=== PATIENT | male | born 1955 | race Caucasian/White ===

== ENCOUNTER 2017-04-13 23:40 | Inpatient (IN) ==
[2017-04-14] MEDS ORDERED: ONDANSETRON 4 MG/2 ML VIAL ONE (00:09)
[2017-04-14] MEDS ORDERED: MAGNESIUM SULF RIDER 50 ML IV ONE (00:10)
[2017-04-14] MEDS ORDERED: HYDROmorphone 2 MG/1 ML VIAL ONE (00:10)
[2017-04-14] MEDS ORDERED: ONDANSETRON 4 MG/2 ML VIAL IV STA (00:35)
[2017-04-14] MEDS ORDERED: MAGNESIUM SULF RIDER 2 GM in PREMIX 1 EACH IV STA (00:35)
[2017-04-14] MEDS ORDERED: HYDROmorphone 2 MG/1 ML VIAL IV STA (00:35)
[2017-04-14 00:58] LABS: Basophils % 0.3 % (0.0-0.8); Eosinophils % 0.4 % (0.00-10.9); Hematocrit 40.2 VOL% (42.0-52.0); Hemoglobin 13.1 GM/DL (14.0-18.0); Immature Granulocytes % 0.3 %; Immature Granulocytes Absolute 0.02 #; Lymphocytes # 0.6 10*3/uL (1.4-4.0); Lymphocytes % 7.7 % (21.2-54.2); Mean Corpuscular HGB Conc 32.6 GM/DL (32-36); Mean Corpuscular Hemoglobin 27 PG (27-34); Mean Corpuscular Volume 83.2 FL (87-102); Mean Platelet Volume 10.7 FL (9.6-12.0); Monocytes # 0.8 10*3/uL (0.11-0.8); Monocytes % 10.9 % (1.7-12.7); Neutrophils # 5.8 10*3/uL (1.4-7.4); Neutrophils % 80.4 % (38.7-73.9); Platelet Count 206 T/CUMM (130-400); Red Blood Count 4.83 MC/CUMM (3.8-5.5); Red Cell Distribution Width 15.8 % (9.3-17.3); White Blood Count 7.2 T/CUMM (4-12)
--- NOTE | 2017-04-14 00:59 | Emergency Department Note ---
Valerie Gross Gwan, am scribing for, and in the presence of, Hany Saenz MD 00 :43. Dany Gross Charles R, MD, personally performed the services described in this documentation, ascribed by Jv Padilla in my presence, and it is both accurate and complete . Arrival - Arrival Chief Complaint: Abdominal / Flank Pain ED Nursing Triage Note: Pt arrives via ems from [facility] for further treatment of possible SBO. Pt was seen for abd pain and nausea earlier tonight and ct results show SBO. Pt has ng tube to right nare upon arrival and states that he feels much better since placement and some suction was done. Pt has no further complaints at this time. Mode of Arrival: Stretcher Limitations: No Limitations Source: Patient, Old Records Reviewed, RN Notes Reviewed Time Seen by Provider: 04/14/17 00:08 - History of Present Illness HPI Narrative: Patient is a 61 y/o male who presents to the ED via EMS transferred from [facility] for further evaluation of small bowel obstruction. Patient stated that he began to have abd pain and nausea yesterday night. He continued to note that he administered some Dulcolax with no relief. Soon after he began to have chest pain. This prompted his visit to [facility] for further evaluation. After arriving to [facility], pt was given a CT that resulted in evidence of a small bowel obstruction. he was then given an NG tube to right nare for relief and prompted to report to [facility] ED for further treatment. While in ED, pt stated that his sxs have subsided and he now has some relief. Patient does not appear to be in any acute distress. No other problems/ complaints reported in ED. Onset (ago): hour(s) Consistency: constant Severity: moderate Allergies/Adverse Reactions: Allergies Allergy/AdvReac Type Severity Reaction Status Date / Time Penicillins Allergy Unknown/Unable Verified 06/05/15 10:50 to obtain morphine AdvReac Hypotension Verified 06/05/15 10:50 Home Medications: Home Medications Medication Instructions Recorded Confirmed Type Ascorbic Acid Tab [Vitamin C Tab] 1,000 mg PO DAILY 06/05/15 04/14/17 History Aspirin [Ecotrin] 325 mg PO DAILY 06/05/15 04/14/17 History Atenolol 50 mg PO BID 06/05/15 04/14/17 History Escitalopram Oxalate [Lexapro] 5 mg PO DAILY 06/05/15 04/14/17 History Levothyroxine Tab [Synthroid Tab] 100 mcg PO DAILY@0700 06/05/15 04/14/17 History Losartan [Cozaar] 50 mg PO DAILY 06/05/15 04/14/17 History Simvastatin 40 mg PO DAILY 06/05/15 04/14/17 History Vitamin E Cap 400 unit PO DAILY 06/05/15 04/14/17 History metFORMIN [Glucophage] 500 mg PO TID 06/05/15 04/14/17 History rOPINIRole [Requip] 1 mg PO BID 06/05/15 04/14/17 History Felodipine [Felodipine ER] 5 mg PO DAILY 04/14/17 04/14/17 History Review of System - Review of System 12 point system: reviewed and no additional remarkable complaints except as stated - Review of System Constitutional: Absent: chills, fever Eyes: Absent: discharge, pain, redness Cardiovascular: Present: as per HPI, chest pain Gastrointestinal: Present: as per HPI, abdominal pain Medical,Surgical,& Family Hx - Medical History Cardio: History of: Hypertension, Cardiovascular Problems (bypass 1997) Endocrine: History of: Diabetes Mellitus (NIDDM), Dyslipidemia, Thyroid Disorder Respiratory: History of: COPD, Obstructive Sleep Apnea Gastrointestinal: History of: GERD - Surgical History Cardiac Surgeries: Sugical HX of: Femoral-Popliteal Bypass Graft - Social History Smoking Status: Never smoker Frequency of Alcohol Use: None Type of Drug Use: None Exam Vital Signs: Vital Signs Temperature 98.0 F 04/13/17 23:40 Pulse Rate 68 04/14/17 02:16 Respiratory Rate 18 04/14/17 02:16 Blood Pressure 147/80 04/14/17 02:16 O2 Sat by Pulse Oximetry 93 L 04/14/17 02:16 - General General appearance: alert, in no apparent distress - Head Head exam: Present: atraumatic, normocephalic - Eye Eye exam: Present: normal appearance, PERRL, EOMI - ENT ENT exam: Present: normal oropharynx, mucous membranes moist, TM's normal bilaterally, normal external ear exam - Expanded ENT Exam Nose exam: other (Patient has NG tube to right nare.) - Neck Neck exam: Present: full ROM, trachea midline. Absent: tenderness - Chest Chest inspection: Present: symmetric chest wall rise. Absent: tenderness - Respiratory Respiratory exam: Present: normal lung sounds bilaterally. Absent: respiratory distress - Cardiovascular Cardiovascular exam: Present: regular rate, normal rhythm, normal heart sounds. Absent: murmur - Abdominal Exam Abdominal exam: Present: distention (Protuberant belly), tenderness (diffuse tenderness), hyperactive bowel sounds (high pitched bowel sounds) - Extremities Exam Extremities exam: Present: full ROM, other (+2 edema noted to bilateral lower extremities) - Back Exam Back exam: Present: full ROM. Absent: tenderness - Neurological Exam Neurological exam: Present: alert, oriented X3, CN II-XII intact. Absent: motor sensory deficit - Psychiatric Psychiatric exam: Present: normal affect, normal mood - Skin Skin exam: Present: other (Patient has NG tube to right nare, protuberant belly and +2 edema note to bilateral LE. ) Course - Consultations Consultation #1: Dr. Brito will admit patient Time: 00:58 Results - Labs CBC & BMP: 04/14/17 00:28 04/14/17 00:28 Lab Results: I have reviewed the patients labs Labs: Laboratory Tests 04/14/17 04/14/17 00:28 00:28 WBC 7.2 RBC 4.83 Hgb 13.1 L Hct 40.2 L MCV 83.2 L Plt Count 206 Neut % (Auto) 80.4 H Lymph % (Auto) 7.7 L Lymph # (Auto) 0.6 L Sodium 141 Potassium 3.8 Chloride 104 Carbon Dioxide 29 BUN 20 H Creatinine 1.30 Glucose 116 H CK-MB (CK-2) 7.7 H Disposition Clinical Impression: Small bowel obstruction, Abdominal pain Case discussed with: patient Disposition: Still a Patient Condition: Stable Time of Disposition: 00:59
[2017-04-14 01:12] LABS: Alanine Aminotransferase 26 U/L (16-61); Alkaline Phosphatase 68 U/L (45-117); Aspartate Amino Transferase 19 U/L (0-37); Blood Urea Nitrogen 20 MG/DL (7-18); CKMB % 4.4 %; Calcium 8.7 MG/DL (8.5-10.1); Glucose 116 MG/DL (74-106); Magnesium 1.8 MG/DL (1.8-2.4); Osmolality,Calculated 284.3 MOS/KG (273-304); Potassium 3.8 MMOL/L (3.5-5.1); Sodium 141 MMOL/L (136-145); Total Protein 6.8 G/DL (6.4-8.3); Troponin I Only < 0.015 NG/ML (0.00-0.045)
[2017-04-14] MEDS ORDERED: DEXTROSE 50% 25 GM/50 ML SYRINGE IV PRN ×2 (02:12→10:30)
[2017-04-14] MEDS ORDERED: GLUCAGON 1 MG VIAL IM PRN ×2 (02:12→10:30)
[2017-04-14] MEDS ORDERED: ACETAMINOPHEN 325 MG TABLET PO PRN (02:12)
[2017-04-14] MEDS ORDERED: ONDANSETRON 4 MG/2 ML VIAL IV PRN (02:12)
[2017-04-14] MEDS: SODIUM CHLORIDE 0.9% 1,000 ML IV SCH ×2 (03:13→11:23)
[2017-04-14 05:19] LABS: Basophils % 0.1 % (0.0-0.8); Eosinophils % 0.6 % (0.00-10.9); Hematocrit 39.2 VOL% (42.0-52.0); Hemoglobin 12.5 GM/DL (14.0-18.0); Immature Granulocytes % 0.3 %; Immature Granulocytes Absolute 0.02 #; Lymphocytes # 0.7 10*3/uL (1.4-4.0); Lymphocytes % 10.1 % (21.2-54.2); Mean Corpuscular HGB Conc 31.9 GM/DL (32-36); Mean Corpuscular Hemoglobin 27 PG (27-34); Mean Corpuscular Volume 84.3 FL (87-102); Monocytes # 0.9 10*3/uL (0.11-0.8); Monocytes % 12.8 % (1.7-12.7); Neutrophils # 5.1 10*3/uL (1.4-7.4); Neutrophils % 76.1 % (38.7-73.9); Platelet Count 211 T/CUMM (130-400); Red Blood Count 4.65 MC/CUMM (3.8-5.5); Red Cell Distribution Width 15.9 % (9.3-17.3); White Blood Count 6.7 T/CUMM (4-12)
[2017-04-14 05:52] LABS: Albumin 3.7 G/DL (3.4-5.0); Bilirubin,Total 1.2 MG/DL (0.2-1.0); Calcium 8.6 MG/DL (8.5-10.1); Magnesium 2.4 MG/DL (1.8-2.4); Osmolality,Calculated 284.3 MOS/KG (273-304); Potassium 4.7 MMOL/L (3.5-5.1); Total Protein 6.6 G/DL (6.4-8.3)
[2017-04-14] MEDS: LEVOTHYROXINE 100 MCG TABLET PO SCH (06:28)
[2017-04-14] MEDS: INSULIN REGULAR 100 UNIT/ML SUBCUT SCH ×4 (07:30→20:48)
[2017-04-14] MEDS: ALBUTEROL/IPRATROPIUM 3 ML NEB RESP TX SCH ×3 (07:47→19:09)
--- NOTE | 2017-04-14 07:49 | XRay Report ---
Exam: XR chest 1V portable Date: 04/14/2017 1:38 AM Indication: Abdominal pain Comparison: 04/13/2017 Technical: AP Findings: Sternotomy wires are present with previous cardiomegaly. Hepatic nasogastric tube traverses esophagus faintly demonstrated distally. Mild elevation left hemidiaphragm. A few reticular nodular densities are present. No pneumothorax. Mediastinum is intact Impression: 1. Cardiomegaly with previous sternotomy without overt decompensation 2. Underlying chronic lung disease and granuloma changes 3. Nasogastric tube in place PROCEDURE INTERPRETED AT [facility] DEPARTMENT OF RADIOLOGY Final Report Signed by: Dr. Rafi Hernandez
[2017-04-14] MEDS ORDERED: metFORMIN 500 MG TABLET PO SCH (08:00)
[2017-04-14] MEDS ORDERED: PANTOPRAZOLE 40 MG TABLET PO SCH (09:00)
[2017-04-14] MEDS: rOPINIRole 1 MG TABLET PO SCH ×2 (09:00→20:49)
[2017-04-14] MEDS: ASPIRIN EC 325 MG TABLET PO SCH (09:00)
[2017-04-14] MEDS: FELODIPINE 5 MG TABLET PO SCH (09:00)
[2017-04-14] MEDS: ATENOLOL 50 MG TABLET PO SCH ×2 (09:00→20:49)
[2017-04-14] MEDS: LOSARTAN 50 MG TABLET PO SCH (09:00)
[2017-04-14] MEDS: SIMVASTATIN 40 MG TABLET PO SCH (09:00)
[2017-04-14] MEDS: ASCORBIC ACID 500 MG TABLET PO SCH (09:00)
[2017-04-14] MEDS: VITAMIN E 1000 UNIT CAPSULE PO SCH (09:00)
[2017-04-14] MEDS: ESCITALOPRAM 10 MG TABLET PO SCH (09:00)
[2017-04-14] MEDS: HYDROmorphone 2 MG/1 ML VIAL IV PRN (09:14)
[2017-04-14] MEDS: ENOXAPARIN 40 MG/0.4 ML SYRINGE SUBCUT SCH (09:18)
--- NOTE | 2017-04-14 10:29 | Hospitalist Consult Note ---
Assessment and Plan - Time spent with patient Time spent with patient: Greater than 30 minutes (1) Small bowel obstruction Status: Acute Assessment and plan: Abdominal CT from [facility] shows dilated proximal small bowel loops with mild edema in the adjacent mesentery which is concerning for partial/ developing small bowel obstruction. Patient is admitted to general surgery service and is being followed by Dr. Brito. Will defer management to surgery. Current Visit: Yes (2) Abdominal pain Status: Acute Assessment and plan: Secondary to above. Current Visit: Yes (3) Hypertension Status: Acute Assessment and plan: Adequately controlled on home medications. Continue home medications and monitor BP. Current Visit: Yes (4) Diabetes mellitus Status: Acute Assessment and plan: Serum glucose 117. Hemoglobin A1c 7.5%. Patient takes metformin 500 mg p.o. daily at home. We will continue metformin and sliding scale insulin with Accu- Cheks ACHS per protocol. Current Visit: Yes (5) CHAY (obstructive sleep apnea) Status: Acute Assessment and plan: Patient voices compliance with home CPAP device. He should continue CPAP use while hospitalized. Current Visit: Yes (6) Restless leg syndrome, controlled Status: Acute Assessment and plan: Adequately managed on Requip. Continue home medications Current Visit: Yes History of Present Illness - Data of Consult Patient: new to practice Consult date: 04/14/17 Requesting Physician: Ortega Brito Primary care physician: Maribell Reyes - Consult Narrative Reason for consult: Medical management History of present illness: Mr. Dolan is a 61 year old white male with a past medical history significant for hypertension, MA with double bypass (1997), diabetes mellitus, CHAY, COPD and restless leg syndrome who presented to the hospital on this morning as a transfer from [facility] for further evaluation of a suspected small bowel obstruction. Patient was decompressed with an NG tube at [facility] prior to transfer to [facility]. On exam, the patient reports feeling much better since having the NG tube placed. Tube remains in place and draining. He denies headache, blurry vision, chest pain, shortness of breath, nausea/vomiting/ diarrhea, hematemesis, BRBPR. He confirms RUQ tenderness and trace edema in BLE. Patient is admitted to Dr. Brito's service. We have been consulted to assist with medical management. Vital signs are stable. Home medications have been restarted and his blood pressure is adequately controlled currently. He takes Metformin 500 mg PO daily for DM management. GFR is >60 and creatinine is 1.30. Hemoglobin A1c is 7.5. He has been appropriately started on SS insulin for inpatient management with [facility]. This case has been discussed with Ms. Calvert, surgery PA, and Dr. Eastman, consulting physician. We are happy to follow along as needed. Thank you for the consult. CC: Ortega Brito MD - Home Medications and Allergies Home Medications: Home Medications Medication Instructions Recorded Confirmed Type Ascorbic Acid Tab [Vitamin C Tab] 1,000 mg PO DAILY 06/05/15 04/14/17 History Aspirin [Ecotrin] 325 mg PO DAILY 06/05/15 04/14/17 History Atenolol 50 mg PO BID 06/05/15 04/14/17 History Escitalopram Oxalate [Lexapro] 5 mg PO DAILY 06/05/15 04/14/17 History Levothyroxine Tab [Synthroid Tab] 100 mcg PO DAILY@0700 06/05/15 04/14/17 History Losartan [Cozaar] 50 mg PO DAILY 06/05/15 04/14/17 History Simvastatin 40 mg PO DAILY 06/05/15 04/14/17 History Vitamin E Cap 400 unit PO DAILY 06/05/15 04/14/17 History metFORMIN [Glucophage] 500 mg PO TID 06/05/15 04/14/17 History rOPINIRole [Requip] 1 mg PO BID 06/05/15 04/14/17 History Felodipine [Felodipine ER] 5 mg PO DAILY 04/14/17 04/14/17 History Allergies/Adverse Reactions: Allergies Allergy/AdvReac Type Severity Reaction Status Date / Time Penicillins Allergy Unknown/Unable Verified 06/05/15 10:50 to obtain morphine AdvReac Hypotension Verified 06/05/15 10:50 Medical,Surgical,& Family Hx - Medical History Cardio: History of: Hypertension, Cardiovascular Problems (bypass 1997) Endocrine: History of: Diabetes Mellitus (NIDDM), Dyslipidemia, Thyroid Disorder Respiratory: History of: COPD, Obstructive Sleep Apnea Genitourinary: History of: Kidney Stones ("two rounds") Gastrointestinal: History of: GERD Musculoskeletal: Comment Only: Musculoskeletal Problems (restless leg syndrome) - Surgical History Cardiac Surgeries: Sugical HX of: Femoral-Popliteal Bypass Graft Orthopedic Surgeries: Comment Only: Orthopedic Surgery ("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") - Family History Family History: Reports;: Family Cancer (mother-lung; father-prostate), Family Heart Disease (father), Family Hypertension (father and mother), Family Stroke ( mother) Denies;: Family Diabetes - Social History Smoking Status: Never smoker Frequency of Alcohol Use: None Type of Drug Use: None Marital Status: Lives With:: Spouse Functional capacity: independent ambulation 12 point system: reviewed and no additional remarkable complaints except as stated Exam - Constitutional Vitals: Period Temp Pulse Resp BP Sys/Kaye Pulse Ox Last 24 Hr 97.0 F-98.0 F 64-77 12-21 140-160/69-80 92-95 Exam: General appearance: obese, no acute distress - Head Head exam: Present: normocephalic, atraumatic - Eye Eye exam: Present: EOMI. Absent: conjunctival injection, nystagmus Pupils: Present: TONIA, normal accommodation - ENT ENT exam: Present: normal exam, normal external ear exam - Neck Neck exam: Present: normal inspection. Absent: lymphadenopathy, tenderness, thyromegaly - Respiratory Respiratory exam: Present: clear to auscultation bilaterally. Absent: rales, rhonchi, wheezes - Cardiovascular Cardiovascular exam: Present: regular rate and rhythm. Absent: carotid bruit, gallop, rubs - GI/Abdominal GI/Abdominal exam: Present: nontender, distended, hypoactive bowel sounds. Absent: ascites, mass - Extremities Exam Extremities exam: Present: normal inspection, normal capillary refill. Absent: edema - Back Exam Back exam: Absent: CVA tenderness (L), CVA tenderness (R) - Neurological Exam Neurological exam: Present: alert, oriented X3, CN II-XII intact, reflexes normal - Psychiatric Psychiatric exam: Present: normal affect, normal mood - Skin Skin exam: Present: normal color, warm, dry Results - Labs CBC & BMP: 04/14/17 04:33 04/14/17 04:33 Lab Results: I have reviewed the past 24 hour labs - Diagnostic Findings Procedure: Abdominal x-ray: image reviewed by me, report reviewed by me, Chest x -ray: image reviewed by me, report reviewed by me
--- NOTE | 2017-04-14 10:46 | General Surg History&Physical ---
<Rocio Calvert - Last Filed: 04/14/17 12:07> Assessment and Plan (1) Partial small bowel obstruction Status: Acute Assessment and plan: Patient is clinically improved with NG tube. Minimal output. We will continue NG tube and bowel rest for now with IV hydration. Dr. Brito to follow. Current Visit: Yes History of Present Illness Chief complaint: abdominal pain History of present illness: Mr. Dolan is a 61 year old male with past medical history of non-insulin- dependent diabetes, CAD status post CABG in 1997, COPD, and CHAY compliant with CPAP who presented initially to an outside facility yesterday with abdominal pain, distention and severe nausea without vomiting as well as chest pain. He had findings on CT concerning for partial small bowel obstruction and was transferred to [facility] for further evaluation and treatment. An NG tube was placed while at the outside facility after which he had significant relief. He has had minimal output here and is relatively comfortable at this time with NG tube still present. He denies any nausea. Reports he had a bowel movement 2 days ago of normal caliber without hematochezia or melena. He is not passing flatus at this time. He denies a generalized fatigue, anorexia, or weight loss. He has no history of abdominal procedures. Home Medications Medication Instructions Recorded Confirmed Type Ascorbic Acid Tab [Vitamin C Tab] 1,000 mg PO DAILY 06/05/15 04/14/17 History Aspirin [Ecotrin] 325 mg PO DAILY 06/05/15 04/14/17 History Atenolol 50 mg PO BID 06/05/15 04/14/17 History Escitalopram Oxalate [Lexapro] 5 mg PO DAILY 06/05/15 04/14/17 History Levothyroxine Tab [Synthroid Tab] 100 mcg PO DAILY@0700 06/05/15 04/14/17 History Losartan [Cozaar] 50 mg PO DAILY 06/05/15 04/14/17 History Simvastatin 40 mg PO DAILY 06/05/15 04/14/17 History Vitamin E Cap 400 unit PO DAILY 06/05/15 04/14/17 History metFORMIN [Glucophage] 500 mg PO TID 06/05/15 04/14/17 History rOPINIRole [Requip] 1 mg PO BID 06/05/15 04/14/17 History Felodipine [Felodipine ER] 5 mg PO DAILY 04/14/17 04/14/17 History Allergies Allergy/AdvReac Type Severity Reaction Status Date / Time Penicillins Allergy Unknown/Unable Verified 06/05/15 10:50 to obtain morphine AdvReac Hypotension Verified 06/05/15 10:50 Medical,Surgical,& Family Hx - Medical History Cardio: History of: Hypertension, Cardiovascular Problems (bypass 1997) Endocrine: History of: Diabetes Mellitus (NIDDM), Dyslipidemia, Thyroid Disorder Respiratory: History of: COPD, Obstructive Sleep Apnea (CPAP compliant) Genitourinary: History of: Kidney Stones ("two rounds") Gastrointestinal: History of: GERD Musculoskeletal: Comment Only: Musculoskeletal Problems (restless leg syndrome) - Surgical History Cardiac Surgeries: Sugical HX of: Femoral-Popliteal Bypass Graft, Cardiac Surgery (CABG) - Family History Family History: Reports;: Family Cancer (mother-lung; father-prostate), Family Heart Disease (father), Family Hypertension (father and mother), Family Stroke ( mother) Denies;: Family Diabetes - Social History Smoking Status: Never smoker Frequency of Alcohol Use: None Type of Drug Use: None Functional capacity: independent ambulation (Employed full-time) Exam - Constitutional Vitals: Period Temp Pulse Resp BP Sys/Kaye Pulse Ox Last 24 Hr 97.0 F-98.0 F 64-92 12-21 140-160/69-80 92-892 General appearance: no acute distress, morbidly obese - Eye Eye exam: Absent: scleral icterus - Respiratory Respiratory exam: Present: clear to auscultation bilaterally - Cardiovascular Cardiovascular exam: Present: RRR - GI/Abdominal GI/Abdominal exam: Present: hypoactive bowel sounds, tenderness (Minimal epigastric), soft, other (Protuberant abdomen; tympanic to percussion) - Extremities Exam Extremities exam: Absent: calf tenderness, edema - Neurological Exam Neurological exam: Present: alert, oriented X3 Speech: Present: normal - Skin Skin exam: Present: normal color, warm - Constitutional Constitutional: Absent: anorexia, chills, fatigue, fever(s) - Cardiovascular Cardiovascular: Present: as per HPI. Absent: dyspnea on exertion, orthopnea - Respiratory Respiratory: Present: cough (Chronic and change), other (No recent COPD exacerbation). Absent: wheezing - Gastrointestinal Gastrointestinal: Present: as per HPI - Genitourinary Genitourinary: Absent: dysuria, flank pain Hematologic/Lymphatic: Absent: easy bleeding, easy bruising Results - Labs CBC & BMP: 04/14/17 04:33 04/14/17 04:33 Lab Results: I have reviewed the past 24 hour labs Labs: Transfer chart from outside facility reviewed in its entirety including imaging - Diagnostic Findings Procedure: Chest x-ray: image reviewed by me, report reviewed by me, KUB x-ray: image reviewed by me, report reviewed by me <Camila Eastman - Last Filed: 04/14/17 12:22> History of Present Illness History of present illness: Mr. Dolan is a 61 year old male with multiple medical issue who is admitted for partial SBO. patient was seen examined and discussed with the [employer] RES[employer] CONSULTANT. Plan BC/UA TSH HbA1c change protonix to IV Lipids SSC Hold metformin for now continue other management Exam - Constitutional Vitals: Period Temp Pulse Resp BP Sys/Kaye Pulse Ox Last 24 Hr 97.0 F-98.0 F 64-92 12-21 140-160/69-80 92-892 Results - Labs CBC & BMP: 04/14/17 04:33 04/14/17 04:33
[2017-04-14 10:59] LABS: Free T4 (Free Thyroxine) 1.1 NG/DL (0.76-1.46); Risk Ratio 3.14; Thyroid Stimulating Hormone 2.04 uIU/ml (0.358-3.74); VLDL CHOLESTEROL 27.8 MG/DL
--- NOTE | 2017-04-14 11:25 | XRay Report ---
History: Abdominal pain Date: 04/14/2017 Study: Flat and erect abdomen Comparison exam: Outside CT scan 04/13/2017 The nasogastric tube is positioned with its tip overlying the proximal stomach level. There is mildly disproportionate small bowel distention compatible with partial small bowel obstruction, the same or only minimally improved compared to the building custodian CT film from yesterday. Scattered stool and air are noted in the normal caliber colon. Phleboliths overlie the pelvis. There is moderate lumbar spondylosis. Impression: Partial small bowel obstruction, the same or only minimally improved compared to the previous day's CT scan. Nasogastric tube positioned at the proximal stomach level PROCEDURE INTERPRETED AT [facility] DEPARTMENT OF RADIOLOGY Final Report Signed by: Dr. Tennille Burkett
--- NOTE | 2017-04-14 11:28 | XRay Report ---
History: Shortness of breath Date: 04/14/2017 at 7:32 AM Study: Chest x-ray PA and lateral Comparison exam: 04/14/2017 at 1:59 AM The nasogastric tube is positioned with its tip at the proximal stomach level. There is stable mild cardiomegaly. The mediastinal contours are unchanged in this patient status post prior median sternotomy. The pulmonary vasculature is not engorged. There is some minor subsegmental atelectasis in the lung bases. There is moderately improved aeration in the left base. There is no gross pleural effusion. Osseous structures are unchanged. Impression: Improving left basilar atelectasis compared to the previous study. No interval worsening PROCEDURE INTERPRETED AT [facility] DEPARTMENT OF RADIOLOGY Final Report Signed by: Dr. Tennille Burkett
[2017-04-14] MEDS: PANTOPRAZOLE 40 MG VIAL IV SCH (11:29)
[2017-04-14 14:58] LABS: Apearance,Urine Slightly Hazy (Clear); Bilirubin,Urine Negative (Negative); Blood, Urine Negative (Negative); Glucose,Urine (UA) Negative (Negative); Hyaline Casts,Urine 3 /LPF (0-3); Ketones,Urine Negative (Negative); Mucus,Urine Occasional /LPF (Occasional); Nitrite,Urine Negative (Negative); Protein,Urine >=500 MG/DL; RBC,Urine 4 /HPF (0-4); Squamous Epithelial Cell,Urine Occasional /HPF (0-10); Urine Color Yellow (Yellow); Urine Specific Gravity 1.026 (1.001-1.035); Urine Urobilinogen < 2.0 EU/DL (0.2-1.0); WBC,Urine 2 /HPF (0-6)
[2017-04-14] MEDS ORDERED: PHENOL 1.4% THROAT SPRAY 177 ML BOTTLE PO PRN (19:13)
[2017-04-15] MEDS: SODIUM CHLORIDE 0.9% 1,000 ML IV SCH ×2 (00:02→13:13)
[2017-04-15] MEDS: ALBUTEROL/IPRATROPIUM 3 ML NEB RESP TX SCH ×4 (01:25→19:52)
[2017-04-15] MEDS: HYDROmorphone 2 MG/1 ML VIAL IV PRN ×3 (02:34→21:17)
[2017-04-15 05:21] LABS: Basophils % 0.5 % (0.0-0.8); Eosinophils # 0.1 10*3/uL (0.0-0.87); Eosinophils % 2.2 % (0.00-10.9); Hemoglobin 12.4 GM/DL (14.0-18.0); Immature Granulocytes % 0.2 %; Immature Granulocytes Absolute 0.01 #; Lymphocytes # 0.6 10*3/uL (1.4-4.0); Lymphocytes % 14.6 % (21.2-54.2); Mean Corpuscular Hemoglobin 27 PG (27-34); Mean Corpuscular Volume 86.2 FL (87-102); Mean Platelet Volume 11.2 FL (9.6-12.0); Monocytes # 0.8 10*3/uL (0.11-0.8); Monocytes % 19.6 % (1.7-12.7); Neutrophils # 2.5 10*3/uL (1.4-7.4); Neutrophils % 62.9 % (38.7-73.9); Platelet Count 181 T/CUMM (130-400); Red Blood Count 4.64 MC/CUMM (3.8-5.5); Red Cell Distribution Width 15.9 % (9.3-17.3)
[2017-04-15 05:50] LABS: Calcium 8.1 MG/DL (8.5-10.1); Osmolality,Calculated 284.1 MOS/KG (273-304); Potassium 4.2 MMOL/L (3.5-5.1)
[2017-04-15 05:56] LABS: Band Neutrophils 5 % (0-10); Eosinophils 2 % (0-10); Lymphocytes 19 % (20-55); Segmented Neutrophils 64 % (50-85); Total Cells Counted 100
[2017-04-15 05:57] LABS: Hypochromasia 1+; Ovalocytes 1+; Platelet Estimate Normal
[2017-04-15] MEDS: INSULIN REGULAR 100 UNIT/ML SUBCUT SCH ×4 (06:38→20:55)
[2017-04-15] MEDS: LEVOTHYROXINE 100 MCG TABLET PO SCH (06:42)
[2017-04-15] MEDS: ESCITALOPRAM 10 MG TABLET PO SCH (09:00)
[2017-04-15] MEDS: ATENOLOL 50 MG TABLET PO SCH ×2 (09:00→20:55)
[2017-04-15] MEDS: ASPIRIN EC 325 MG TABLET PO SCH (09:00)
[2017-04-15] MEDS: LOSARTAN 50 MG TABLET PO SCH (09:00)
[2017-04-15] MEDS: ASCORBIC ACID 500 MG TABLET PO SCH (09:00)
[2017-04-15] MEDS: VITAMIN E 1000 UNIT CAPSULE PO SCH (09:00)
[2017-04-15] MEDS: SIMVASTATIN 40 MG TABLET PO SCH (09:00)
[2017-04-15] MEDS: rOPINIRole 1 MG TABLET PO SCH ×2 (09:00→20:55)
[2017-04-15] MEDS: FELODIPINE 5 MG TABLET PO SCH (09:00)
[2017-04-15] MEDS: PANTOPRAZOLE 40 MG VIAL IV SCH (09:03)
[2017-04-15] MEDS: ENOXAPARIN 40 MG/0.4 ML SYRINGE SUBCUT SCH (09:06)
--- NOTE | 2017-04-15 11:06 | General Surgery Progress Note ---
Assessment and Plan (1) Partial small bowel obstruction Status: Acute Assessment and plan: Patient is clinically improved with NG tube with minimal output. Still no bowel sounds. We will continue NG tube and monitor. Will reexamine later today for hopeful NG tube removal. Continue IV hydration. Dr. Brito to follow. Current Visit: Yes Subjective Patient reports: Present: no new complaints, feels better (passed flatus last night; none today. No BM. Decreased abdominal distension. No N/V. Increased activity.) Exam - Constitutional Vitals: Period Temp Pulse Resp BP Sys/Kaye Pulse Ox Last 24 Hr 97.3 F-98.8 F 66-86 15-20 126-188/68-91 83-98 General appearance: morbidly obese - Respiratory Respiratory exam: Present: clear to auscultation bilaterally - Cardiovascular Cardiovascular exam: Present: RRR - GI/Abdominal GI/Abdominal exam: Present: soft, other (protuberant; less distended; no bowel sounds noted). Absent: tenderness - Extremities Exam Extremities exam: Absent: calf tenderness, edema - Neurological Exam Neurological exam: Present: alert, oriented X3 Speech: Present: normal - Skin Skin exam: Present: normal color Results - Labs CBC & BMP: 04/15/17 04:07 04/15/17 04:07 Lab Results: I have reviewed the past 24 hour labs (NG tube output approximately 150 cc) - Diagnostic Findings Procedure: Abdominal Flat/Erect: image reviewed by me (Reading pending. )
[2017-04-15] MEDS ORDERED: hydrALAZINE 20 MG/1 ML VIAL IV ONE (11:43)
--- NOTE | 2017-04-15 13:26 | XRay Report ---
History: Partial small bowel obstruction Date: 04/15/2017 Study: Flat and erect abdomen Comparison exam: 04/14/2017 The nasogastric tube tip has been retracted to the level of the GE junction. It is recommended that the nasogastric tube be advanced between 5 and 8 cm at the minimum. There is no evidence of pneumoperitoneum. There is mild disproportionate small bowel dilatation, though this has improved compared to the previous study. Some scattered stool and air are noted in the normal caliber colon. No gross mass lesion seen. Osseous structures are unchanged. Impression: Persistent but improving partial small bowel obstruction The nasogastric tube has been retracted to the GE junction level. It is recommended that the tube be advanced between 5 and 8 cm PROCEDURE INTERPRETED AT [facility] DEPARTMENT OF RADIOLOGY Final Report Signed by: Dr. Tennille Burkett
[2017-04-16] MEDS: ALBUTEROL/IPRATROPIUM 3 ML NEB RESP TX SCH ×4 (01:14→19:15)
[2017-04-16] MEDS: SODIUM CHLORIDE 0.9% 1,000 ML IV SCH ×2 (02:28→12:13)
[2017-04-16] MEDS ORDERED: ENALAPRIL 2.5 MG/2 ML VIAL IV PRN (05:58)
[2017-04-16] MEDS ORDERED: hydrALAZINE 20 MG/1 ML VIAL IV PRN (05:59)
[2017-04-16] MEDS: LEVOTHYROXINE 100 MCG TABLET PO SCH ×2 (06:00→10:01)
[2017-04-16] MEDS: PANTOPRAZOLE 40 MG VIAL IV SCH (08:22)
[2017-04-16] MEDS: ENOXAPARIN 40 MG/0.4 ML SYRINGE SUBCUT SCH (08:22)
[2017-04-16] MEDS: INSULIN REGULAR 100 UNIT/ML SUBCUT SCH ×4 (08:37→20:58)
[2017-04-16] MEDS: ESCITALOPRAM 10 MG TABLET PO SCH (10:00)
[2017-04-16] MEDS: ATENOLOL 50 MG TABLET PO SCH (10:00)
[2017-04-16] MEDS: ASCORBIC ACID 500 MG TABLET PO SCH (10:00)
[2017-04-16] MEDS: FELODIPINE 5 MG TABLET PO SCH (10:00)
[2017-04-16] MEDS: LOSARTAN 50 MG TABLET PO SCH (10:00)
[2017-04-16] MEDS: SIMVASTATIN 40 MG TABLET PO SCH (10:02)
[2017-04-16] MEDS: rOPINIRole 1 MG TABLET PO SCH ×2 (10:02→21:01)
[2017-04-16] MEDS: VITAMIN E 1000 UNIT CAPSULE PO SCH (10:02)
[2017-04-16] MEDS: ASPIRIN EC 325 MG TABLET PO SCH (10:02)
--- NOTE | 2017-04-16 10:19 | General Surgery Progress Note ---
Assessment and Plan (1) Partial small bowel obstruction Status: Acute Assessment and plan: Patient is clinically improved with NG tube with minimal output even after advancement of 6cm yesterday after abd xr showed malpositioning. Patient with hypoactive bowel sounds. We will remove NG tube and triceps of water and meds. I will check him again later and to see if he is able to advance to clear liquid diet. Continue IV hydration for now. Dr. Brito to follow. Current Visit: Yes Subjective Patient reports: Present: feels better, flatus, no bowel movement, other (Tmax 100.0. Hypertensive yesterday but pt has not had home meds.). Absent: nausea, vomiting (NGT outuput 200cc in 24 hrs. ) Exam - Constitutional Vitals: Period Temp Pulse Resp BP Sys/Kaye Pulse Ox Last 24 Hr 97.2 F-100.0 F 63-88 16-18 139-200/54-100 90-100 General appearance: no acute distress, morbidly obese - Respiratory Respiratory exam: Present: clear to auscultation bilaterally - Cardiovascular Cardiovascular exam: Present: RRR - GI/Abdominal GI/Abdominal exam: Present: hypoactive bowel sounds, other (protuberant abdomen without distension). Absent: tenderness - Extremities Exam Extremities exam: Absent: calf tenderness, edema - Neurological Exam Neurological exam: Present: alert, oriented X3 Speech: Present: normal Results - Labs CBC & BMP: 04/15/17 04:07 04/15/17 04:07 Labs: No new labs today
[2017-04-16] MEDS: CARVEDILOL 6.25 MG TABLET PO SCH ×2 (12:11→21:01)
[2017-04-16] MEDS: BISACODYL 10 MG SUPP RECTAL SCH (12:12)
--- NOTE | 2017-04-16 15:24 | Hospitalist Progress Note ---
Assessment and Plan (1) Small bowel obstruction Status: Acute Assessment and plan: NG remove, sips of water Current Visit: Yes (2) Hypertension Status: Acute Assessment and plan: restarted coreg and losartan Current Visit: Yes (3) Diabetes mellitus Status: Acute Assessment and plan: isc, BS controlled Current Visit: Yes (4) CHAY (obstructive sleep apnea) Status: Acute Assessment and plan: cpap at bedtime Current Visit: Yes Hospitalist: Subjective Interval history: HL IVF, sips of water remove ng, Continue to ambulate in the halls. Passing gas , restarted home meds Exam - Constitutional Vitals: Period Temp Pulse Resp BP Sys/Kaye Pulse Ox Last 24 Hr 97.2 F-100.0 F 63-81 18-18 139-195/54-98 87-100 Exam: Heart Rate-[RRR] Lungs-[CTAB, Diminished] GI-[diminished bowel sounds, NT, obese] Ext-[no edema] Neuro [Motor 5/5], [alert and oriented times 3] psych [normal mood and affect] General [no acute distress] Results - Labs CBC & BMP: 04/15/17 04:07 04/15/17 04:07 Lab Results: I have reviewed the past 24 hour labs Labs: blood cx times 2 negative - Diagnostic Findings Procedure: Abdominal x-ray: report reviewed by me (persistent small bowel obstruction)
--- NOTE | 2017-04-16 15:32 | Hospitalist Progress Note ---
Assessment and Plan (1) Small bowel obstruction Status: Acute Assessment and plan: NG clamp, needs to walk the halls Current Visit: Yes (2) Hypertension Status: Acute Assessment and plan: IV hydralazine prn Current Visit: Yes (3) Diabetes mellitus Status: Acute Assessment and plan: isc, BS controlled Current Visit: Yes (4) CHAY (obstructive sleep apnea) Status: Acute Assessment and plan: unable to wear cpap due to NG Current Visit: Yes (5) SOB (shortness of breath) Status: Acute Assessment and plan: cxr copd, echo normal Current Visit: Yes Hospitalist: Subjective Interval history: Bs controlled, encourage patient to get up and ambulate the halls. When we checked his O2 sats without oxygen and it dropped down below 90%. Patient did not have his CPAP machine with him and could not wear it due to the NG tube. Exam - Constitutional Vitals: Period Temp Pulse Resp BP Sys/Kaye Pulse Ox Last 24 Hr 97.2 F-100.0 F 63-81 18-18 139-195/54-98 87-100 Exam: Heart Rate-[RRR] Lungs-[CTAB, Diminished] GI-[diminished bowel sounds, NT, obese] Ext-[no edema] Neuro [Motor 5/5], [alert and oriented times 3] psych [normal mood and affect] General [no acute distress] Results - Labs CBC & BMP: 04/15/17 04:07 04/15/17 04:07 Lab Results: I have reviewed the past 24 hour labs - Diagnostic Findings Procedure: Ultrasound: report reviewed by me (echo ef 55% with pap 30)
[2017-04-16 16:12] LABS: Basophils % 0.4 % (0.0-0.8); Eosinophils # 0.1 10*3/uL (0.0-0.87); Eosinophils % 1.3 % (0.00-10.9); Hematocrit 39.4 VOL% (42.0-52.0); Hemoglobin 12.5 GM/DL (14.0-18.0); Immature Granulocytes % 0.7 %; Immature Granulocytes Absolute 0.04 #; Lymphocytes # 0.7 10*3/uL (1.4-4.0); Lymphocytes % 13.6 % (21.2-54.2); Mean Corpuscular HGB Conc 31.7 GM/DL (32-36); Mean Corpuscular Hemoglobin 27 PG (27-34); Mean Corpuscular Volume 85.5 FL (87-102); Mean Platelet Volume 10.9 FL (9.6-12.0); Monocytes # 0.8 10*3/uL (0.11-0.8); Neutrophils # 3.8 10*3/uL (1.4-7.4); Platelet Count 192 T/CUMM (130-400); Red Blood Count 4.61 MC/CUMM (3.8-5.5); Red Cell Distribution Width 15.9 % (9.3-17.3); White Blood Count 5.5 T/CUMM (4-12)
--- NOTE | 2017-04-16 16:37 | Discharge Summary ---
Hospital Course - Hospital Course Hospital Course: And is a 61-year-old male admitted with partial small bowel obstruction which was treated conservatively with NG tube, bowel rest, and IV hydration. Ultimately, the patient was tolerating oral intake and passing flatus with resolution of the partial obstruction. Hospitalist consultation was obtained and appreciated any management of his comorbidities including diabetes mellitus , hypertension and COPD. While off his home medications his blood pressures were elevated, but better controlled once his home meds were resumed when he was tolerating oral intake. CPAP was continued for his sleep apnea. Patient was discharged home in good condition without complication. Diagnosis - Discharge Diagnosis (1) Partial small bowel obstruction Status: Acute (2) Diabetes mellitus Status: Acute (3) Hypertension Status: Acute (4) CHAY (obstructive sleep apnea) Status: Acute Specialty Discharge - Follow Up or Referrals Follow up with: Ortega Brito MD [Physician] - (as needed) Discharge Plan - Discharge Data Disposition: Disch To Home/Self Care Condition at Discharge: Stable Discharge Diet: advance to your usual diet Contact your physician if you experience:: fever over 101, Nausea/Vomiting, Shortness of breath - Discharge Medications New Carvedilol [Coreg] 6.25 mg PO BID #60 tablet Albuterol/Ipratropium Neb [Duoneb] 3 ml RESP TX TID #90 neb Albuterol/Ipratropium Neb [Duoneb] 3 ml RESP TX TID #90 tablet Continue Vitamin E Cap 400 unit PO DAILY Losartan [Cozaar] 50 mg PO DAILY Aspirin [Ecotrin] 325 mg PO DAILY Ascorbic Acid Tab [Vitamin C Tab] 1,000 mg PO DAILY metFORMIN [Glucophage] 500 mg PO TID Simvastatin 40 mg PO DAILY Levothyroxine Tab [Synthroid Tab] 100 mcg PO DAILY@0700 rOPINIRole [Requip] 1 mg PO BID Escitalopram Oxalate [Lexapro] 5 mg PO DAILY Discontinued Atenolol 50 mg PO BID Felodipine [Felodipine ER] 5 mg PO DAILY - Follow Up or Referral Follow Up: Ortega Brito MD [Physician] - (as needed) - Forms/Instructions Instructions: Bowel Obstruction (DC) Additional Discharge Instructions: Hospital follow with primary care physician in 7-10 days Exam - Constitutional Vitals: Period Temp Pulse Resp BP Sys/Kaye Pulse Ox Last 24 Hr 97.2 F-100.0 F 63-81 18-19 139-195/54-98 87-100 Discharge Results Procedures and tests throughout hospitalization: Pending Orders 04/14/17 10:47 Blood Culture Routine 04/16/17 15:31 CT chest high resolution Routine 04/16/17 15:43 B-Type Natriuretic Peptide Stat CMP [Comprehensive Metabolic Panel] Stat Hemoglobin A1C Routine Procedures: None Labs on day of discharge: Labs from last 24 hours 04/16/17 04/16/17 04/16/17 15:43 15:39 10:45 WBC 5.5 D RBC 4.61 Hgb 12.5 L Hct 39.4 L MCV 85.5 L MCH 27 MCHC 31.7 L RDW 15.9 Plt Count 192 MPV 10.9 Neut % (Auto) 69.0 Lymph % (Auto) 13.6 L Aiken % (Auto) 15.0 H Eos % (Auto) 1.3 Baso % (Auto) 0.4 Neut # (Auto) 3.8 Lymph # (Auto) 0.7 L Aiken # (Auto) 0.8 Eos # (Auto) 0.1 Baso # (Auto) 0.0 Immature Gran % 0.7 Nucleated RBC % 0.0 Immature Gran # 0.04 Nucleated RBCs # 0.00 Immature Plt Fraction 0.0 POC Glucose 109 H 87 04/16/17 04/15/17 06:40 19:39 WBC RBC Hgb Hct MCV MCH MCHC RDW Plt Count MPV Neut % (Auto) Lymph % (Auto) Aiken % (Auto) Eos % (Auto) Baso % (Auto) Neut # (Auto) Lymph # (Auto) Aiken # (Auto) Eos # (Auto) Baso # (Auto) Immature Gran % Nucleated RBC % Immature Gran # Nucleated RBCs # Immature Plt Fraction POC Glucose 80 104 Preliminary micro results at discharge 04/14/17 10:47 Blood Culture - Preliminary Blood No growth at 1 day 04/14/17 10:54 Blood Culture - Preliminary Blood No growth at 1 day - Imaging and Cardiology Procedure: Abdominal x-ray: image reviewed by me, report reviewed by me (Serial images obtained and reviewed initially indicating small bowel obstruction, and ultimately resolution. NG tube was initially in proper position and then retracted and required forward positioning.), Chest x-ray: image reviewed by me , report reviewed by me (Serial images obtained and reviewed. No acute findings.), CT Abdomen and Pelvis: image reviewed by me, report reviewed by me ( CT the abdomen pelvis from outside facility was reviewed by Dr. 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
[2017-04-16 16:43] LABS: Albumin 3.6 G/DL (3.4-5.0); Bilirubin,Total 1.1 MG/DL (0.2-1.0); Calcium 8.9 MG/DL (8.5-10.1); Osmolality,Calculated 282.3 MOS/KG (273-304); Potassium 4.1 MMOL/L (3.5-5.1); Total Protein 6.7 G/DL (6.4-8.3)
--- NOTE | 2017-04-16 16:47 | CT Report ---
CT chest high resolution Indication: Shortness of breath Comparison: None available Technique: Axial CT imaging of the chest was done at 1 cm intervals without intravenous contrast using high-resolution protocol. Findings: Trace amounts of subpleural interstitial linear and coarse linear densities are present in the right lower lung. The mediastinal border. This does not significantly change with prone positioning. Remaining lungs show no evidence of infiltrates or airspace disease. No nodule or mass is identified. No effusion or pneumothorax is seen. Heart size is enlarged. Pulmonary vessel caliber appears slightly increased. Cardiac surgery changes are present. Otherwise the heart, mediastinum and great vessels appear within normal limits. No other abnormality is identified. Impression: Cardiomegaly with prominent pulmonary vessels, may indicate mild cardiac decompensation. Cardiac surgery changes are present. Trace amounts of right lower lung interstitial airspace density, likely scarring. No other significant abnormalities. This CT exam was performed using one or more the following dose reduction techniques: Automated exposure control, adjustment of the MA and/or KV according to patient size, or use of iterative reconstruction technique. PROCEDURE INTERPRETED AT [facility] DEPARTMENT OF RADIOLOGY Final Report Signed by: Dr. Migue Jackson
[2017-04-17] MEDS: ALBUTEROL/IPRATROPIUM 3 ML NEB RESP TX SCH ×2 (00:03→07:21)
[2017-04-17 05:21] VITALS: BP 146/67
[2017-04-17] MEDS: LEVOTHYROXINE 100 MCG TABLET PO SCH (07:06)
[2017-04-17] MEDS: INSULIN REGULAR 100 UNIT/ML SUBCUT SCH ×2 (09:43→11:55)
[2017-04-17] MEDS: LOSARTAN 50 MG TABLET PO SCH (09:45)
[2017-04-17] MEDS: BISACODYL 10 MG SUPP RECTAL SCH (09:45)
[2017-04-17] MEDS: ASPIRIN EC 325 MG TABLET PO SCH (09:45)
[2017-04-17] MEDS: CARVEDILOL 6.25 MG TABLET PO SCH (09:45)
[2017-04-17] MEDS: PANTOPRAZOLE 40 MG VIAL IV SCH (09:46)
[2017-04-17] MEDS: ENOXAPARIN 40 MG/0.4 ML SYRINGE SUBCUT SCH (09:46)
[2017-04-17] MEDS: rOPINIRole 1 MG TABLET PO SCH (09:46)
[2017-04-17] MEDS: ESCITALOPRAM 10 MG TABLET PO SCH (09:46)
[2017-04-17] MEDS: VITAMIN E 1000 UNIT CAPSULE PO SCH (09:47)
[2017-04-17] MEDS: SIMVASTATIN 40 MG TABLET PO SCH (09:47)
[2017-04-17] MEDS: ASCORBIC ACID 500 MG TABLET PO SCH (09:47)
[2017-04-17] MEDS ORDERED: FUROSEMIDE 40 MG/4 ML VIAL IV SCH (10:30)
--- NOTE | 2017-04-17 10:39 | Event Note ---
Afebrile vital signs stable. Passing a lot of flatus. Tolerating low residue diet without any nausea or vomiting. He has no abdominal pain. On exam his abdomen is benign. He wants to go home. Will discharge today. Follow-up with me on an as-needed basis. Instructed to call or return to the emergency room for any nausea vomiting abdominal pain fever or any other changes.
--- NOTE | 2017-04-17 10:52 | Hospitalist Progress Note ---
Assessment and Plan (1) Small bowel obstruction Status: Acute Assessment and plan: Resolving without intervention. Home today Current Visit: Yes (2) Hypertension Status: Acute Assessment and plan: Controlled on oral meds Current Visit: Yes (3) Diabetes mellitus Status: Acute Assessment and plan: isc, BS controlled Current Visit: Yes (4) CHAY (obstructive sleep apnea) Status: Acute Assessment and plan: CPAP at bedtime Current Visit: Yes (5) SOB (shortness of breath) Status: Acute Assessment and plan: Cardiomegaly with cardiac decompensation we will give him a one-time dose of Lasix. He has evidence of COPD probably has some atelectasis from being inactive. Sat on room air is better today at 96% will get him nebulizer machine for home. He is no longer smoking. Current Visit: Yes Hospitalist: Subjective Interval history: Patient is still not having bowel movements but he is passing good gas. He is ambulating the halls without oxygen. Sat on room air was 96. He does have some atelectasis and some COPD and I would like to get him a nebulizer machine for home PT as on a normal basis he gets out of breath with his walking. He also has some atelectasis probably from being ill and laying in bed for so long. He has got better bowel sounds today and is nontender. Exam - Constitutional Vitals: Period Temp Pulse Resp BP Sys/Kaye Pulse Ox Last 24 Hr 97.8 F-98.1 F 54-77 17-20 107-146/58-72 87-98 Exam: Heart Rate-[RRR] Lungs-[CTAB, Diminished] GI-[good bowel sounds, NT, obese] Ext-[no edema] Neuro [Motor 5/5], [alert and oriented times 3] psych [normal mood and affect] General [no acute distress] Results - Labs CBC & BMP: 04/16/17 15:43 04/16/17 15:43 Lab Results: I have reviewed the past 24 hour labs - Diagnostic Findings Procedure: CT - chest: report reviewed by me (Cardiomegaly with prominent pulmonary vessels may be mild cardiac decompensation but his BNP was not very elevated. Cardiac surgery changes trace right lower lobe airspace density likely scarring.) Specialty Discharge - Follow Up or Referrals Follow up with: Ortega Brito MD [Physician] - (as needed)
--- NOTE | 2017-04-20 18:00 | Order Completion Report ---
See report scanned to EMR
== END 2017-04-17 13:50 | disposition home or self-care (01) | DRG 389 ==
LOC: EDBD → EDUNIT# → N.ED 23:40 → N.EDINP 04-14 01:06 → N.3E 04-14 01:50
PROVIDERS: ADMIT Surgery; ATTEND Surgery

== ENCOUNTER 2021-05-25 03:08 | Observation (INO) ==
[2021-05-25] MEDS ORDERED: LABETALOL 20 MG/4 ML SYRINGE IV STA (05:17)
[2021-05-25] MEDS ORDERED: ACETAMINOPHEN 325 MG TABLET PO PRN (06:13)
[2021-05-25] MEDS ORDERED: GLUCAGON 1 MG VIAL IM PRN (06:13)
[2021-05-25] MEDS ORDERED: BISACODYL 5 MG TABLET PO PRN (06:13)
[2021-05-25] MEDS ORDERED: ONDANSETRON 4 MG/2 ML VIAL IV PRN (06:13)
[2021-05-25] MEDS ORDERED: POTASSIUM CHLORIDE 20 MEQ TABLET PO PRN ×2 (06:13)
[2021-05-25] MEDS ORDERED: MAGNESIUM SULF RIDER 2 GM/50 ML PREMIX IV PRN (06:13)
[2021-05-25] MEDS ORDERED: MAGNESIUM SULF RIDER 4 GM/100 ML PREMIX IV PRN (06:13)
[2021-05-25] MEDS ORDERED: DEXTROSE 50% 25 GM/50 ML VIAL IV PRN (06:13)
[2021-05-25] MEDS ORDERED: ALUM/MAG/SIMETH/LIDO VISC 1:1 30 ML BOTTLE PO PRN (06:13)
[2021-05-25] MEDS ORDERED: hydrALAZINE 20 MG/1 ML VIAL IV PRN (06:25)
[2021-05-25] MEDS ORDERED: cloNIDine 0.1 MG TABLET PO STA (06:26)
[2021-05-25 07:44] LABS: Basophils % 0.6 % (0.0-0.8); Eosinophils # 0.1 10*3/uL (0.0-0.87); Hematocrit 44.1 VOL% (42.0-52.0); Hemoglobin 13.9 GM/DL (14.0-18.0); Immature Granulocytes % 0.2 %; Immature Granulocytes Absolute 0.01 #; Lymphocytes % 20.8 % (21.2-54.2); Mean Corpuscular HGB Conc 31.5 GM/DL (32-36); Mean Platelet Volume 9.9 FL (9.6-12.0); Monocytes % 17.1 % (1.7-12.7); Neutrophils % 59.3 % (38.7-73.9); Platelet Count 171 T/CUMM (130-400); Red Blood Count 5.01 MC/CUMM (3.8-5.5); Red Cell Distribution Width 16.3 % (9.3-17.3); White Blood Count 4.9 T/CUMM (4-12)
[2021-05-25 07:57] LABS: PT Patient Result 11.5 SECS (10.5-12.0); Partial Thromboplastin Time 30.6 SECS (23.8-32.1)
[2021-05-25 08:03] LABS: Alanine Aminotransferase 25 U/L (16-61); Albumin 4.1 G/DL (3.4-5.0); Alkaline Phosphatase 58 U/L (45-117); Aspartate Amino Transferase 21 U/L (0-37); Blood Urea Nitrogen 17 MG/DL (7-18); Calcium 9.1 MG/DL (8.5-10.1); Carbon Dioxide 28 MMOL/L (21-32); Estimated Glom Filtration Rate 70 ML/MIN; Glucose 162 MG/DL (74-106); HDL Cholesterol 64 MG/DL (40-60); Osmolality,Calculated 286.3 MOS/KG (273-304); Potassium 3.7 MMOL/L (3.5-5.1); Risk Ratio 2.33; Sodium 141 MMOL/L (136-145); Total Protein 7.2 G/DL (6.4-8.2); Triglycerides 170 MG/DL (2-150)
[2021-05-25] MEDS ORDERED: ASPIRIN 325 MG TABLET PO SCH (09:00)
[2021-05-25] MEDS: ESCITALOPRAM 10 MG TABLET PO SCH (09:20)
[2021-05-25] MEDS: PANTOPRAZOLE 40 MG TABLET PO SCH (09:20)
[2021-05-25] MEDS: ASCORBIC ACID 500 MG TABLET PO SCH (09:20)
[2021-05-25 09:27] LABS: Eosinophils 1 % (0-10); Hypochromasia 2+; Lymphocytes 9 % (20-55); Platelet Estimate Adequate; Polychromasia Slight; Segmented Neutrophils 69 % (50-85); Total Cells Counted 100
[2021-05-25] MEDS: INSULIN REGULAR 100 UNIT/ML SUBCUT SCH ×4 (10:03→22:13)
[2021-05-25] MEDS ORDERED: ENOXAPARIN 100 MG/ML SYRINGE SUBCUT SCH (14:00)
[2021-05-25] MEDS: carvediloL 6.25 MG TABLET PO SCH ×2 (14:02→22:00)
[2021-05-25] MEDS: amLODIPine 10 MG TABLET PO SCH (14:03)
[2021-05-25] MEDS ORDERED: NITROGLYCERIN SL 0.4 MG TABLET SL PRN (21:31)
[2021-05-25] MEDS: LOSARTAN 50 MG TABLET PO SCH (22:00)
[2021-05-25] MEDS: rOPINIRole 1 MG TABLET PO SCH (22:00)
[2021-05-25] MEDS: ROSUVASTATIN 20 MG TABLET PO SCH (22:00)
[2021-05-26 04:42] LABS: Basophils % 0.4 % (0.0-0.8); Eosinophils % 0.6 % (0.00-10.9); Hematocrit 43.8 VOL% (42.0-52.0); Hemoglobin 13.4 GM/DL (14.0-18.0); Immature Granulocytes % 0.4 %; Immature Granulocytes Absolute 0.02 #; Lymphocytes # 0.7 10*3/uL (1.4-4.0); Lymphocytes % 13.4 % (21.2-54.2); Mean Corpuscular HGB Conc 30.6 GM/DL (32-36); Mean Corpuscular Volume 89.2 FL (87-102); Mean Platelet Volume 9.7 FL (9.6-12.0); Monocytes % 12.2 % (1.7-12.7); Platelet Count 164 T/CUMM (130-400); Red Blood Count 4.91 MC/CUMM (3.8-5.5); White Blood Count 5.2 T/CUMM (4-12)
[2021-05-26 05:06] LABS: Calcium 8.9 MG/DL (8.5-10.1); Osmolality,Calculated 284.4 MOS/KG (273-304); Potassium 4.2 MMOL/L (3.5-5.1)
[2021-05-26] MEDS: SODIUM CHLORIDE 0.9% 1,000 ML IV SCH ×2 (06:40→19:25)
[2021-05-26] MEDS: ASPIRIN EC 81 MG TABLET PO SCH (08:58)
[2021-05-26] MEDS: PANTOPRAZOLE 40 MG TABLET PO SCH (08:58)
[2021-05-26] MEDS: LOSARTAN 50 MG TABLET PO SCH ×2 (08:58→21:12)
[2021-05-26] MEDS: ESCITALOPRAM 10 MG TABLET PO SCH (08:58)
[2021-05-26] MEDS: ASCORBIC ACID 500 MG TABLET PO SCH (08:58)
[2021-05-26] MEDS: amLODIPine 10 MG TABLET PO SCH (08:59)
[2021-05-26] MEDS: carvediloL 6.25 MG TABLET PO SCH ×2 (08:59→21:11)
[2021-05-26] MEDS ORDERED: ENOXAPARIN 40 MG/0.4 ML SYRINGE SUBCUT SCH (09:00)
[2021-05-26] MEDS: INSULIN REGULAR 100 UNIT/ML SUBCUT SCH ×4 (09:02→21:43)
[2021-05-26] MEDS ORDERED: BISACODYL 10 MG SUPP RECTAL ONE (12:27)
[2021-05-26] MEDS ORDERED: DIAZEPAM 5 MG TABLET PO ONE (14:00)
[2021-05-26] MEDS ORDERED: diphenhydrAMINE CAP 25 MG CAPSULE PO ONE (14:00)
[2021-05-26] MEDS ORDERED: MIDAZOLAM 2 MG/2 ML VIAL ONE (14:51)
[2021-05-26] MEDS ORDERED: fentaNYL 100 MCG/2 ML VIAL ONE (14:51)
[2021-05-26] MEDS ORDERED: HEPARIN 5,000 UNIT/1 ML VIAL ONE ×2 (15:14→15:46)
[2021-05-26] MEDS ORDERED: NIFEdipine 10 MG CAPSULE PO ONE (15:45)
[2021-05-26] MEDS ORDERED: TICAGRELOR 90 MG TABLET ONE (16:07)
[2021-05-26] MEDS: rOPINIRole 1 MG TABLET PO SCH (21:11)
[2021-05-26] MEDS: ROSUVASTATIN 20 MG TABLET PO SCH (21:11)
[2021-05-26] MEDS: TICAGRELOR 90 MG TABLET PO SCH (21:12)
[2021-05-27 00:48] LABS: Basophils % 0.3 % (0.0-0.8); Eosinophils # 0.1 10*3/uL (0.0-0.87); Hemoglobin 12.8 GM/DL (14.0-18.0); Immature Granulocytes % 0.5 %; Immature Granulocytes Absolute 0.03 #; Lymphocytes # 0.9 10*3/uL (1.4-4.0); Lymphocytes % 14.5 % (21.2-54.2); Mean Corpuscular HGB Conc 31.2 GM/DL (32-36); Mean Corpuscular Volume 89.9 FL (87-102); Mean Platelet Volume 9.5 FL (9.6-12.0); Monocytes % 12.8 % (1.7-12.7); Neutrophils % 70.9 % (38.7-73.9); Platelet Count 149 T/CUMM (130-400); Red Blood Count 4.56 MC/CUMM (3.8-5.5); Red Cell Distribution Width 16.3 % (9.3-17.3); White Blood Count 5.9 T/CUMM (4-12)
[2021-05-27 00:52] LABS: Calcium 8.7 MG/DL (8.5-10.1); Osmolality,Calculated 279.5 MOS/KG (273-304); Potassium 3.8 MMOL/L (3.5-5.1)
[2021-05-27] MEDS ORDERED: LEVOTHYROXINE 200 MCG TABLET PO SCH (09:00)
[2021-05-27] MEDS ORDERED: FERROUS SULFATE 325 MG TABLET PO SCH (09:00)
[2021-05-27] MEDS ORDERED: CYANOCOBALAMIN 500 MCG TABLET PO SCH (09:00)
[2021-05-27] MEDS ORDERED: DOCUSATE SODIUM 100 MG/10 ML UDCUP PO SCH (09:00)
[2021-05-27] MEDS: ASCORBIC ACID 500 MG TABLET PO SCH (10:10)
[2021-05-27] MEDS: TICAGRELOR 90 MG TABLET PO SCH (10:10)
[2021-05-27] MEDS: ESCITALOPRAM 10 MG TABLET PO SCH (10:11)
[2021-05-27] MEDS: amLODIPine 10 MG TABLET PO SCH (10:11)
[2021-05-27] MEDS: ASPIRIN EC 81 MG TABLET PO SCH (10:12)
[2021-05-27] MEDS: PANTOPRAZOLE 40 MG TABLET PO SCH (10:12)
[2021-05-27] MEDS: LOSARTAN 50 MG TABLET PO SCH (10:12)
[2021-05-27] MEDS: carvediloL 6.25 MG TABLET PO SCH (10:12)
[2021-05-27] MEDS: INSULIN REGULAR 100 UNIT/ML SUBCUT SCH ×2 (10:23→15:01)
[2021-05-27 11:26] VITALS: BP 152/76
== END 2021-05-27 15:54 | disposition home or self-care (01) ==
LOC: EDBD → EDUNIT# → N.EDINP 03:08 → N.ED 03:08 → SUATTDRO 06:13 → N.TELEN 05-26 02:47
PROVIDERS: ADMIT Internal Medicine; ATTEND Internal Medicine
PROC: CLDESPG (ICD-10-PCS; 2021-05-26 15:15)

== ENCOUNTER 2021-10-06 12:03 | Observation (INO) ==
[2021-10-06 13:58] LABS: Bilirubin,Total 0.9 MG/DL (0.20-1.00); Calcium 9.2 MG/DL (8.5-10.1); Osmolality,Calculated 283.4 MOS/KG (273-304); Potassium 4.2 MMOL/L (3.5-5.1); Total Protein 7.7 G/DL (6.4-8.2)
[2021-10-06 15:46] LABS: Basophils % 0.3 % (0.0-0.8); Eosinophils % 0.4 % (0.00-10.9); Hematocrit 39.9 VOL% (42.0-52.0); Immature Granulocytes % 0.4 %; Immature Granulocytes Absolute 0.03 #; Lymphocytes % 15.4 % (21.2-54.2); Mean Corpuscular HGB Conc 32.6 GM/DL (32-36); Mean Corpuscular Volume 90.5 FL (87-102); Mean Platelet Volume 9.6 FL (9.6-12.0); Monocytes % 8.4 % (1.7-12.7); Neutrophils % 75.1 % (38.7-73.9); Platelet Count 185 T/CUMM (130-400); Red Blood Count 4.41 MC/CUMM (3.8-5.5); Red Cell Distribution Width 13.2 % (9.3-17.3); White Blood Count 6.7 T/CUMM (4-12)
[2021-10-06] MEDS ORDERED: NITROGLYCERIN SL 0.4 MG TABLET SL PRN (16:15)
[2021-10-06] MEDS ORDERED: ACETAMINOPHEN 325 MG TABLET PO PRN (16:15)
[2021-10-06] MEDS ORDERED: SPIRONOLACTONE 25 MG TABLET PO PRN (16:15)
[2021-10-06] MEDS ORDERED: ONDANSETRON 4 MG/2 ML VIAL IV PRN (16:17)
[2021-10-06] MEDS ORDERED: hydrALAZINE 20 MG/1 ML VIAL IV PRN (16:17)
[2021-10-06] MEDS ORDERED: GLUCAGON 1 MG VIAL IM PRN (16:17)
[2021-10-06] MEDS ORDERED: DEXTROSE 10% 25 GM/250 ML BAG IV PRN ×2 (16:17)
[2021-10-06 16:50] LABS: VLDL Cholesterol 17.2 MG/DL
[2021-10-06 16:51] LABS: Thyroid Stimulating Hormone 0.008 uIU/ml (0.358-3.74)
[2021-10-06] MEDS: INSULIN LISPRO 100 UNIT/ML SUBCUT SCH ×2 (18:09→22:48)
[2021-10-06] MEDS: ENOXAPARIN 30 MG/0.3 ML SYRINGE SUBCUT SCH (18:25)
[2021-10-06] MEDS: SODIUM CHLORIDE 0.9% 1,000 ML IV SCH (18:29)
[2021-10-06] MEDS: rOPINIRole 1 MG TABLET PO SCH (22:17)
[2021-10-06] MEDS: TICAGRELOR 90 MG TABLET PO SCH (22:17)
[2021-10-06] MEDS: ROSUVASTATIN 20 MG TABLET PO SCH (22:17)
[2021-10-06] MEDS: carvediloL 6.25 MG TABLET PO SCH (22:17)
[2021-10-06] MEDS: FERROUS SULFATE 325 MG TABLET PO SCH (22:17)
[2021-10-07 05:58] LABS: Basophils % 0.5 % (0.0-0.8); Eosinophils # 0.1 10*3/uL (0.0-0.87); Eosinophils % 1.2 % (0.00-10.9); Hematocrit 37.9 VOL% (42.0-52.0); Hemoglobin 12.3 GM/DL (14.0-18.0); Immature Granulocytes % 0.3 %; Immature Granulocytes Absolute 0.02 #; Lymphocytes # 1.1 10*3/uL (1.4-4.0); Lymphocytes % 19.5 % (21.2-54.2); Mean Corpuscular HGB Conc 32.5 GM/DL (32-36); Mean Corpuscular Volume 89.6 FL (87-102); Mean Platelet Volume 9.8 FL (9.6-12.0); Monocytes % 14.5 % (1.7-12.7); Platelet Count 189 T/CUMM (130-400); Red Blood Count 4.23 MC/CUMM (3.8-5.5); Red Cell Distribution Width 13.2 % (9.3-17.3); White Blood Count 5.9 T/CUMM (4-12)
[2021-10-07] MEDS ORDERED: LEVOTHYROXINE 200 MCG TABLET PO SCH (06:00)
[2021-10-07 06:20] LABS: Calcium 9.1 MG/DL (8.5-10.1); Osmolality,Calculated 284.3 MOS/KG (273-304); Potassium 3.4 MMOL/L (3.5-5.1)
[2021-10-07] MEDS ORDERED: POTASSIUM CHLORIDE 20 MEQ TABLET PO ONE (09:36)
[2021-10-07] MEDS: TICAGRELOR 90 MG TABLET PO SCH ×2 (09:48→21:37)
[2021-10-07] MEDS: rOPINIRole 1 MG TABLET PO SCH ×3 (09:48→21:37)
[2021-10-07] MEDS: CYANOCOBALAMIN 500 MCG TABLET PO SCH (09:48)
[2021-10-07] MEDS: FERROUS SULFATE 325 MG TABLET PO SCH ×3 (09:48→21:37)
[2021-10-07] MEDS: ASPIRIN EC 81 MG TABLET PO SCH (09:48)
[2021-10-07] MEDS: carvediloL 6.25 MG TABLET PO SCH ×2 (09:48→21:37)
[2021-10-07] MEDS: ESCITALOPRAM 10 MG TABLET PO SCH (09:49)
[2021-10-07] MEDS: PANTOPRAZOLE 40 MG TABLET PO SCH (09:49)
[2021-10-07] MEDS: NON-FORMULARY MEDICATION (Docusate Sodium [Stool Softener] 50 mg Capsule) PO SCH (09:49)
[2021-10-07] MEDS: ASCORBIC ACID 500 MG TABLET PO SCH (09:49)
[2021-10-07] MEDS: INSULIN LISPRO 100 UNIT/ML SUBCUT SCH ×4 (09:49→21:38)
[2021-10-07] MEDS: amLODIPine 10 MG TABLET PO SCH (09:50)
[2021-10-07] MEDS: SODIUM CHLORIDE 0.9% 1,000 ML IV SCH (12:05)
[2021-10-07] MEDS: LACTATED RINGERS 1,000 ML IV SCH (12:29)
[2021-10-07] MEDS: hydrALAZINE 25 MG TABLET PO SCH ×2 (12:29→21:37)
[2021-10-07] MEDS: ENOXAPARIN 30 MG/0.3 ML SYRINGE SUBCUT SCH (17:18)
[2021-10-07] MEDS: ROSUVASTATIN 20 MG TABLET PO SCH (21:37)
[2021-10-08] MEDS: LACTATED RINGERS 1,000 ML IV SCH ×2 (03:55→08:18)
[2021-10-08 05:09] LABS: Basophils % 0.6 % (0.0-0.8); Eosinophils # 0.1 10*3/uL (0.0-0.87); Eosinophils % 1.6 % (0.00-10.9); Hematocrit 38.2 VOL% (42.0-52.0); Hemoglobin 12.5 GM/DL (14.0-18.0); Immature Granulocytes % 0.3 %; Immature Granulocytes Absolute 0.02 #; Lymphocytes # 1.2 10*3/uL (1.4-4.0); Mean Corpuscular HGB Conc 32.7 GM/DL (32-36); Mean Corpuscular Volume 88.2 FL (87-102); Mean Platelet Volume 9.6 FL (9.6-12.0); Monocytes % 12.9 % (1.7-12.7); Neutrophils % 67.6 % (38.7-73.9); Platelet Count 190 T/CUMM (130-400); Red Blood Count 4.33 MC/CUMM (3.8-5.5); Red Cell Distribution Width 13.2 % (9.3-17.3); White Blood Count 6.8 T/CUMM (4-12)
[2021-10-08 05:26] LABS: Albumin 3.6 G/DL (3.4-5.0); Bilirubin,Total 0.7 MG/DL (0.20-1.00); Calcium 8.5 MG/DL (8.5-10.1); Osmolality,Calculated 282.4 MOS/KG (273-304); Potassium 3.4 MMOL/L (3.5-5.1); Total Protein 6.6 G/DL (6.4-8.2)
[2021-10-08 06:35] LABS: Barbiturates Screen,Urine Negative (Negative); Benzodiazepines Screen,Urine Negative (Negative); Cannabinoid Screen,Urine Negative (Negative); Opiate Screen,Urine Negative (Negative); Phencyclidine Screen,Urine Negative (Negative)
[2021-10-08] MEDS ORDERED: SPIRONOLACTONE 25 MG TABLET PO SCH (09:00)
[2021-10-08] MEDS ORDERED: LOSARTAN 25 MG TABLET PO SCH (09:00)
[2021-10-08] MEDS ORDERED: POTASSIUM CHLORIDE 20 MEQ TABLET PO SCH (09:00)
[2021-10-08] MEDS: ASCORBIC ACID 500 MG TABLET PO SCH (09:07)
[2021-10-08] MEDS: ASPIRIN EC 81 MG TABLET PO SCH (09:07)
[2021-10-08] MEDS: INSULIN LISPRO 100 UNIT/ML SUBCUT SCH ×2 (09:07→12:48)
[2021-10-08] MEDS: PANTOPRAZOLE 40 MG TABLET PO SCH (09:08)
[2021-10-08] MEDS: TICAGRELOR 90 MG TABLET PO SCH (09:08)
[2021-10-08] MEDS: FERROUS SULFATE 325 MG TABLET PO SCH (09:09)
[2021-10-08] MEDS: hydrALAZINE 25 MG TABLET PO SCH (09:10)
[2021-10-08] MEDS: ESCITALOPRAM 10 MG TABLET PO SCH (09:10)
[2021-10-08] MEDS: carvediloL 6.25 MG TABLET PO SCH (09:11)
[2021-10-08] MEDS: rOPINIRole 1 MG TABLET PO SCH (09:11)
[2021-10-08] MEDS: CYANOCOBALAMIN 500 MCG TABLET PO SCH (09:11)
[2021-10-08] MEDS: amLODIPine 10 MG TABLET PO SCH (09:12)
[2021-10-08] MEDS: NON-FORMULARY MEDICATION (Docusate Sodium [Stool Softener] 50 mg Capsule) PO SCH (09:13)
[2021-10-08 13:00] VITALS: BP 135/77
== END 2021-10-08 14:40 | disposition home or self-care (01) ==
LOC: N.ED 12:03 → N.EDINP 12:03 → N.TELES 19:42
PROVIDERS: ADMIT Internal Medicine; ATTEND Internal Medicine